=== PATIENT | female | born 1965 | race African-American/Black ===

== ENCOUNTER 2022-05-08 17:39 | Emergency (ER) | payer OTHER ==
[~2022-05-08] VITALS: Ht 175.3 cm; Wt 95.0 kg
[~2022-05-08 17:39] MED LIST: IBUP-2030
[2022-05-08] MEDS ORDERED: ACETAMINOPHEN 325MG TABLET PO STA (18:49)
[2022-05-08] MEDS ORDERED: ACETAMINOPHEN 325MG TABLET PO NR (21:15)
[2022-05-08] MEDS ORDERED: KETOROLAC 60MG/2ML VIAL IM ONE (22:00)
[2022-05-08] MEDS ORDERED: LIDOCAINE 5% PATCH TOP SCH (22:00)
[2022-05-08 23:00] VITALS: BP 150/90
[2022-05-08] MEDS ORDERED: TOPUD PO (23:30)
[2022-05-08] MEDS ORDERED: LIDO1ADH23 TP (23:30)
== END 2022-05-08 23:55 | disposition home or self-care (01) ==
LOC: ER 17:39
DX: G44.209 Tension-type headache, unspecified, not intractable (principal); E78.00 Pure hypercholesterolemia, unspecified; I10 Essential (primary) hypertension
CPT/HCPCS: 70450; 96372; 99285; J1885